=== PATIENT | female | born 1955 | race Caucasian/White ===

== ENCOUNTER 2021-01-21 13:48 | Emergency (ER) | payer MEDICARE, OTHER, SELFPAY ==
[2021-01-21 13:54] VITALS: BP 132/86; PULSE 92; RESP 18; TEMP 36.7; O2SAT 86; BMI 35.5
--- NOTE | 2021-01-21 14:02 | CT_ITS ---
WS: [id number] CT CHEST, ABDOMEN AND PELVIS WITH CONTRAST. HISTORY: trauma TECHNIQUE: Contiguous 5 mm axial imaging performed through the chest, abdomen and pelvis with IV cont rast, oral contrast has not been provided. Coronal and sagittal reformats chest. Coronal and sagittal reformats through the abdomen and pelvis. All CT scans at [facility] use at least one of the se dose optimization techniques: automated exposure control; mA and/or kV adjustment per patient size (includes targeted exams where dose is matched to clinical indication); or iterative reconstruction. CONTRAST: Omnipaque 300; 95 mL IV. DLP: 1899.72 mGy.cm COMPARISON: None available. Chest CT: Small layering LEFT pleural effusion with Hounsfield units slightly elevated. There is a ad ditional stranding and increased opacification in the LEFT lower lobe but no laceration. Fluid extend ing along the inferior descending aorta with a small amount of adjacent fluid or blood. On several im ages the wall of the descending aorta is irregular and minimal aortic injury is not excluded. There is no pneumothorax. Mild dependent changes at the RIGHT lung base. Aortic arch is intact. Nondisplaced acute rib fractures noted along the LEFT lateral chest beginning at the fourth rib throu gh the 10th rib. 10th rib fracture is more posterior. None of these fractures are displaced. Several of these rib fractures are fractured in 2 places including the LEFT sixth, seventh, eighth and ninth ribs. Fractures are posterior and lateral. Abdomen CT: Liver is intact. There is a small amount of fluid adjacent to the superior spleen. Along the very superior aspect of the spleen has been irregularity of the splenic contour and I favor there is a probably a splenic injury but no acute bleeding at this time. Pancreas and adrenal glands are n egative. Gallbladder is been removed. Very mild atherosclerosis aorta. No abdominal aortic injury. 9 mm low-attenuation mass in the superior pole of the RIGHT kidney with septations. No obstruction of t he kidneys. No adenopathy or mesenteric injury. Visualized GI tract is normal. Pelvic CT: No free fluid in the pelvis. Urinary bladder is normally distended. No pelvic fracture. No spine fractures identified. CT/CT chest abd pel w con* IMPRESSION: 1. Small LEFT hemothorax with LEFT lower lobe pulmonary contusion and no lacer ation. 2. Fluid adjacent to the descending aorta with loss of the normal contour of t he aorta. Suspicious for minimal aortic injury involving the descending aorta. Recommend CT angiogram aorta with gating 3. Flail chest. Multiple left-sided rib fractures from the fourth and 10th rib . The sixth through ninth ribs are fractured in [address]. No significa nt displacement. 4. Very minimal injury suspected of the superior spleen with adjacent fluid. Notified Mitchel Guallpa DO at 01/21/2021 3:49 PM.
--- NOTE | 2021-01-21 14:02 | CT_ITS ---
WS: [id number] CT CERVICAL SPINE HISTORY: trauma TECHNIQUE: Contiguous 2.5 mm axial imaging performed through the entire cervical spine. Sagittal and coronal reformats also performed. All CT scans at [facility] use at least one of these dose o ptimization techniques: automated exposure control; mA and/or kV adjustment per patient size (include s targeted exams where dose is matched to clinical indication); or iterative reconstruction. DLP: 693.93 mGy.cm COMPARISON: None available. Very mild RIGHT curvature of the cervical spine. 2 mm anterolisthesis of C3-4. Mild disc space narrow ing at C5-6 and C6-7 with osteophytes. Facet joints are normally aligned. Craniocervical junction is normal. Lateral masses of C1 and C2 are aligned odontoid is intact. C2-C3: Normal. C3-C4: Normal. C4-C5: Mild bilateral foraminal narrowing with moderate LEFT facet hypertrophy. C5-C6: Diffuse osteophytic ridging and mild bilateral foraminal narrowing and facet hypertrophy. C6-C7: Normal. C7-T1: Normal. Lung apices are clear. Degenerative changes at the LEFT TM joint. CT/CT cervical spin wo con* [id number] IMPRESSION: 1. No acute cervical spine fracture. 2. Facet joint arthritis and foraminal narrowing as above.
--- NOTE | 2021-01-21 14:05 | XR_ITS ---
WS: [id number] Exam: XR chest 1V portable [id number] Date/Time of Exam: 01/21/2021 2:06 PM Reason For Exam: dyspnea/cough No priors. There is infiltrate in the left lower lobe. This may be acute pneumonia or chronic change. Plaque ate lectasis in the right lung base. Cardiomediastinal structures are unremarkable for technique. Lung vo lumes are decreased secondary to limited inspiration. No pneumothorax. Remaining lung olvera are neel r. Bony structures are intact. Several old left rib fractures. XR/XR chest 1V portable [id number] IMPRESSION: 1. Left lower lobe infiltrate. This may represent chronic change or active pneu monia. Plaque atelectasis in the right lung base.
--- NOTE | 2021-01-21 14:05 | CT_ITS ---
WS: [id number] CT HEAD NONCONTRAST HISTORY: trauma TECHNIQUE: Contiguous axial imaging performed through the brain in 2.5 mm imaging. Bone and soft tiss ue windows. Sagittal and coronal reformats reviewed. All CT scans at [facility] use at least one of these dose optimization techniques: automated exposure control; mA and/or kV adjustment per pa tient size (includes targeted exams where dose is matched to clinical indication); or iterative recon struction. DLP: 1032.21 mGy.cm COMPARISON: None available. No acute intracranial hemorrhage, midline shift or mass effect. No atrophy or prior infarcts or herniation. Ventricles: Normal size with no hydrocephalus. Paranasal sinuses: As visualized are clear. Mastoid air cells: Well pneumatized. Calvarium and scalp: No skull fracture. Small scalp contusion over the LEFT frontal bone. CT/CT head wo con* [id number] IMPRESSION: 1. No acute intracranial hemorrhage or edema. 2. No skull fracture. 3. Small LEFT frontal scalp hematoma.
--- NOTE | 2021-01-21 14:07 | ED_ITS ---
HPI - Trauma General: Chief Complaint: Trauma Stated Complaint: THROWN OFF HORSE/trauma Time Seen by Provider: 01/21/21 13:50 History of Present Illness: HPI narrative: 65-year-old female presents emergency room after being thrown from a horse while riding at a local outdoor venue. Initial O2 sat on room air was 86%. She is complaining of left-sided lower rib pain she is difficult taking a deep breath due to pain. With oxygen she corrects to the mid 90s. She denies striking her head there is no loss consciousness she is in cervical collar she denies any neck pain or any extremity pain. MD complaint: fall (From a horse) Onset (ago): minute(s) Loss of Consciousness: no Location: head and chest Context: other (From from a horse) Associated symptoms: Reports chest pain, difficulty breathing and short of breath; Denies abdominal pain, back pain, chills, confusion, cough, dental pain, diaphoresis, dizziness, epistaxis, fever(s), headache(s), nausea, seizures, syncope, visual disturbances, vomiting or weakness Treatments prior to arrival: IV, oxygen and cervical collar Review of Systems Const: Denies: fever(s), chills or diaphoresis ENMT: Denies: dental pain or epistaxis Card: Reports: chest pain; Denies: syncope Resp: Denies: dyspnea, productive cough or non-productive cough GI: Denies: abdominal pain, nausea or vomiting : Denies: flank pain, difficulty voiding, dysuria, urinary frequency or urinary urgency Musc: Denies: back pain Skin/Breast: Denies: rash or pruritus Neuro: Denies: headache(s), dizziness or confusion Physical Exam Const: COMMON NORMALS: no acute distress GENERAL APPEARANCE: cooperative and comfortable ORIENTATION/CONSCIOUSNESS: Yes awake, Yes oriented to person, Yes oriented to place and Yes oriented to time HENMT: COMMON NORMALS: normocephalic, atraumatic and hearing grossly normal bilaterally HEAD & SCALP: normocephalic and atraumatic Neck/C-Spine: COMMON NORMALS: no JVD Chest: CHEST: Yes Symmetrical chest wall rise, No crepitus and Yes tenderness (Left lateral chest wall at the anterior axillary line) Resp: COMMON NORMALS: normal respiratory effort, No retractions, No use of accessory muscles and clear to auscultation bilaterally AUSCULTATION: clear to auscultation bilaterally OTHER: No subcutaneous air auscultated or palpated. Cardio: COMMON NORMALS: no JVD, regular rate, regular rhythm and No murmurs present (Cardio) RATE: regular rate RHYTHM: regular rhythm GI: COMMON NORMALS: Soft to palpation and No hepatosplenomegaly present AUSCULTATION: Yes normoactive bowel sounds PALPATION: Yes Soft to palpation, No Tenderness to palpation present (GI), No Guarding due to palpation present (GI) and Yes No hepatosplenomegaly present Extremity: COMMON NORMALS: normal to inspection, capillary refill normal, no clubbing, cyanosis or edema, no calf tenderness and no pedal edema Neuro: SENSORIUM/ORIENTATION: Yes oriented to person, Yes oriented to place and Yes oriented to time Skin: COMMON NORMALS: no rashes or lesions noted GENERAL SKIN EXAM: no ra shes or lesions noted Course Vital Signs: Vital signs: Vital Signs Temperature 98.1 F 01/21/21 13:54 Pulse Rate 74 01/21/21 17:25 Respiratory Rate 20 H 01/21/21 17:25 Blood Pressure 132/76 01/21/21 17:25 Pulse Oximetry 96 01/21/21 17:25 MDM - Trauma MDM Narrative: Medical decision making narrative: Significant injuries noted on CT chest and abdomen. Reviewed with the patient also reviewed labs at this time she is stable. Her oxygen sats are good I do not believe she will benefit from a chest tube. Was transferred here [facility] for trauma services. Or able to secure transport in a timely manner imaging of the thoracic aorta would delay transfer to for definitive care so was not completed. Patient stable time of transfer. Lab Data: Labs: Lab Results 01/21/21 01/21/21 14:15 14:15 WBC 10.5 10^3/uL H 10 ^3/uL (4.0-10.0) RBC 4.10 10^6/uL 10^6 /uL (4.1-5.3) Hgb 12.4 g/dL g/dL (11.5-15.3) Hct 37.8 % % (37.0-47.0) MCV 92.2 fl fl (81-99) MCH 30.2 pg pg (28.0-34.0) MCHC 32.8 g/dL g/dL (30.0-36.0) RDW 13.0 % % (12.1-15.1) Plt Count 357 10^3/cmm 10^3 /cmm (130-400) MPV 11.1 fL H fL (7.4-10.4) Neut % (Auto) 82.0 % % Lymph % (Auto) 11.2 % % Crockett % (Auto) 4.2 % % Eos % (Auto) 1.5 % % Baso % (Auto) 0.6 % % Neut # (Auto) 8.59 10^3/uL H 10 ^3/uL (1.8-7.7) Lymph # (Auto) 1.2 10^3/uL 10^3/ uL (0.8-4.8) Crockett # (Auto) 0.4 10^3/uL 10^3/ uL (0.2-0.9) Eos # (Auto) 0.2 10^3/uL 10^3/ uL (0.0-0.8) Baso # (Auto) 0.1 10^3/uL 10^3/ uL (0.0-0.1) Nucleated RBC % (a uto) 0 % % Nucleated RBCs # 0.0 /100WBC /100W BC Sodium 135 mmol/L L mmol /L (136-145) Potassium 3.4 mmol/L L mmol /L (3.5-5.1) Chloride 99 mmol/L mmol/L (98-107) Carbon Dioxide 23 mmol/L mmol/L (22-29) Anion Gap 16.4 (5-19) BUN 8 mg/dL mg/dL (8-23) Creatinine 0.5 mg/dL mg/dL (0.5-0.9) GFR Calculation 123.1 mL/min mL/m in (90-130) Glucose 94 mg/dL mg/dL (65-115) Calculated Osmolal ity 278 mOsm/kg L mOs m/kg (285-295) Calcium 9.3 mg/dL mg/dL (8.5-10.5) Total Bilirubin 0.3 mg/dL mg/dL (0.15-1.2) AST 23 U/L U/L (0-32) ALT 24 U/L U/L (0-33) Alkaline Phosphata se 91 IU/L IU/L (35-105) Total Protein 7.6 g/dL g/dL (6.6-8.7) Albumin 4.7 g/dL g/dL (3.5-5.2) Globulin 2.9 g/dL g/dL (1.3-4.6) Discharge Plan Discharge Patient Disposition: Transfer to ED Clinical Impression: Hemothorax on left, Contusion of left lung, Injury of thoracic aorta, Minor laceration of spleen, Closed flail chest, Closed rib fracture Prescriptions: No Action multivitamin Tablet 1 tab PO DAILY RF: 0 celecoxib 200 mg capsule 200 mg PO QAM RF: 0 citalopram 40 mg tablet 40 mg PO QAM RF: 0 hydrocodone-acetaminophen 10-325 mg tablet 0.5 tab PO BEDTIME RF: 0 omeprazole 40 mg capsule,delayed release(DR/EC) 40 mg PO QAM RF: 0 lorazepam 0.5 mg tablet 0.5 mg PO BEDTIME RF: 0 gemfibrozil 600 mg tablet 1,200 mg PO QAM RF: 0 Benadryl 25 mg Capsule 75 mg PO BEDTIME RF: 0 irbesartan-hydrochlorothiazide 300-12.5 mg tablet 1 tab PO QAM RF: 0 gabapentin 300 mg capsule 600 mg PO BEDTIME RF: 0 Coding Level of Care Code ED [employer] F[employer] Exam Comprehensive
[2021-01-21 14:19] VITALS: BP 115/82; PULSE 88; RESP 17; O2SAT 91
[2021-01-21 14:38] LABS: Basophils # 0.1 10^3/uL (0.0-0.1); Basophils % 0.6 %; Eosinophils # 0.2 10^3/uL (0.0-0.8); Eosinophils % 1.5 %; Hematocrit 37.8 % (37.0-47.0); Hemoglobin 12.4 g/dL (11.5-15.3); Lymphocytes # 1.2 10^3/uL (0.8-4.8); Lymphocytes % 11.2 %; Mean Corpuscular HGB Conc 32.8 g/dL (30.0-36.0); Mean Corpuscular Hemoglobin 30.2 pg (28.0-34.0); Mean Corpuscular Volume 92.2 fl (81-99); Mean Platelet Volume 11.1 fL (7.4-10.4); Monocytes # 0.4 10^3/uL (0.2-0.9); Monocytes % 4.2 %; Neutrophils # 8.59 10^3/uL (1.8-7.7); Nucleated Red Blood Cells % 0 %; Platelet Count 357 10^3/cmm (130-400); White Blood Count 10.5 10^3/uL (4.0-10.0)
[2021-01-21 14:59] LABS: Alanine Aminotransferase 24 U/L (0-33); Albumin Level 4.7 g/dL (3.5-5.2); Alkaline Phosphatase 91 IU/L (35-105); Anion Gap 16.4 (5-19); Aspartate Amino Transferase 23 U/L (0-32); Blood Urea Nitrogen 8 mg/dL (8-23); Calcium 9.3 mg/dL (8.5-10.5); Carbon Dioxide 23 mmol/L (22-29); Chloride 99 mmol/L (98-107); Creatinine Clr Calc Pharmacy 75.8148; Globulin 2.9 g/dL (1.3-4.6); Glomerular Filtration Rate 123.1 mL/min (90-130); Glucose 94 mg/dL (65-115); Osmolality Calculated 278 mOsm/kg (285-295); Potassium 3.4 mmol/L (3.5-5.1); Sodium 135 mmol/L (136-145); Total Bilirubin 0.3 mg/dL (0.15-1.2); Total Protein 7.6 g/dL (6.6-8.7)
[2021-01-21] MEDS: iohexol 300 mg/mL 100 mL Btl IV (15:16)
--- NOTE | 2021-01-21 15:39 | PC.PHAR ---
pt states she takes care of her own medications-rx filled on 12/02/20 90d/s for gabapentin 300mg qam and 600mg hs-pt states she just takes 600mg hs-rx filled as gemfibrozil 600mg bid 01/04/21 60d/s-pt states she takes 600mg then eats then takes the other 600mg tab-rx filled on 10/27/20 20d/ for norco 10-325mg 1 tab po q4h prn-pt states she just takes 1/2 tab hs-rx filled as lorazepam 0.5mg bid prn 01/08/21 30d/s-pt state she just takes 0.5mg hs-notes are made in the pharmacy comments
[2021-01-21 15:58] VITALS: BP 132/81; PULSE 74; RESP 16; O2SAT 91
[2021-01-21 16:41] VITALS: BP 134/95; PULSE 88; RESP 17; O2SAT 95
[2021-01-21 17:25] VITALS: BP 132/76; PULSE 74; RESP 20; O2SAT 96
== END 2021-01-21 17:06 ==
PROVIDERS: Emergency Provider Family Medicine
DX: S27.1XXA Traumatic hemothorax, initial encounter (principal); S27.321A Contusion of lung, unilateral, initial encounter; S25.00XA Unspecified injury of thoracic aorta, initial encounter; S36.030A Superficial (capsular) laceration of spleen, initial encounter; S22.5XXA Flail chest, initial encounter for closed fracture; V80.010A Animal-rider injured by fall from or being thrown from horse in noncollision accident, initial encounter
CPT/HCPCS: 70450; 71045; 71260; 72125; 74177; 80053; 85025; 96365; 99284; 99291; Q9967